=== PATIENT | female | born 1975 | race Caucasian/White ===

== ENCOUNTER 2017-08-11 12:39 | Day surgery (SDC) | payer OTHER ==
[2017-08-11] MEDS ORDERED: LIDOCAINE 2% (SDV) 5 ML INJ (13:18)
[2017-08-11] MEDS ORDERED: PROPOFOL 40 ML (13:18)
[2017-08-11] MEDS ORDERED: MIDAZOLAM 1 MG/ML 2 ML INJ (13:19)
[2017-08-11] MEDS ORDERED: PROPOFOL 20 ML ×4 (13:56)
== END 2017-08-11 15:15 | disposition home or self-care (01) ==
LOC: GIL 12:39
DX: K92.1 Melena (principal)
CPT/HCPCS: 45378; 82962; 84703

== ENCOUNTER 2018-06-29 11:20 | Day surgery (SDC) | payer OTHER ==
[2018-06-29] MEDS ORDERED: FENTAnyl 50 MCG/ML VIAL (13:00)
[2018-06-29] MEDS ORDERED: PROPOFOL 20 ML (13:00)
== END 2018-06-29 15:18 | disposition home or self-care (01) ==
LOC: GIL 11:20
DX: K44.9 Diaphragmatic hernia without obstruction or gangrene (principal); K21.9 Gastro-esophageal reflux disease without esophagitis; I10 Essential (primary) hypertension; E11.9 Type 2 diabetes mellitus without complications; J45.909 Unspecified asthma, uncomplicated
CPT/HCPCS: 43239; 82962; 84703; 88305

== ENCOUNTER 2018-12-27 08:54 | Inpatient (IN) | payer OTHER ==
[~2018-12-27 08:54] MED LIST: CEFAZOLIN 2 GM/50 ML (PMX) 50 ML IVPB
[2018-12-27] MEDS ORDERED: GLYCOPYRROLATE 0.4 MG INJ (10:50)
[2018-12-27] MEDS ORDERED: ROCURONIUM 50 MG INJ (10:50)
[2018-12-27] MEDS ORDERED: PROPOFOL 20 ML (10:51)
[2018-12-27] MEDS ORDERED: FENTAnyl 50 MCG/ML VIAL ×3 (10:51→16:02)
[2018-12-27] MEDS ORDERED: DEXAMETHASONE 4 MG/ML 5 ML INJ (10:51)
[2018-12-27] MEDS ORDERED: NEOSTIGMINE 3 MG/3 ML SYRINGE (10:51)
[2018-12-27] MEDS ORDERED: CEFAZOLIN 1 GM INJ (10:51)
[2018-12-27] MEDS ORDERED: ONDANSETRON 4 MG INJ (10:51)
[2018-12-27] MEDS ORDERED: MIDAZOLAM 1 MG/ML 2 ML INJ ×2 (10:51→16:26)
[2018-12-27] MEDS ORDERED: SOD CHLORIDE 0.9% 1,000 ML IV (11:00)
[2018-12-27] MEDS ORDERED: FENTAnyl 50 MCG/ML VIAL IV ×2 (11:30)
[2018-12-27] MEDS ORDERED: TRIMETHOBENZAMIDE 100 MG/ML VIAL IM (11:30)
[2018-12-27] MEDS ORDERED: HYDROmorphONE 1 MG/5 ML IV SYRINGE IV ×3 (11:30→16:25)
[2018-12-27] MEDS ORDERED: hydrALAzine 20 MG INJ IV (11:30)
[2018-12-27] MEDS ORDERED: IPRATROPIUM (NEB) 0.5 MG/2.5 ML AMP HHN (11:30)
[2018-12-27] MEDS ORDERED: ALBUTEROL 0.083% (NEB) 2.5 MG/3 ML AMP HHN (11:30)
[2018-12-27] MEDS ORDERED: OXYCODONE/ACETAMINOPHEN (5/325) TAB PO ×2 (11:30)
[2018-12-27] MEDS ORDERED: LABETALOL HCL 20MG INJ IV (11:30)
[2018-12-27] MEDS ORDERED: EPHEDrine 25 MG/5 ML SYG IV (11:30)
[2018-12-27] MEDS ORDERED: ONDANSETRON 4 MG INJ IV (11:30)
[2018-12-27] MEDS ORDERED: POLYMYXIN/BACITRACIN 1L IRRIG (11:39)
[2018-12-27] MEDS ORDERED: BUPIVACAINE 0.5% (SDV) 30 ML INJ (11:40)
[2018-12-27] MEDS ORDERED: SURGIFOAM POWDER 1 GM KIT (11:40)
[2018-12-27] MEDS ORDERED: BUPIVACAINE 0.25%/EPI (SDV) 30 ML INJ (11:40)
[2018-12-27] MEDS ORDERED: CA CHLORIDE 10% 10 ML SYRINGE ×2 (11:41→14:51)
[2018-12-27] MEDS ORDERED: BUPIVACAINE 0.25% (MPF) 30 ML INJ (11:44)
[2018-12-27] MEDS: morphine 2 MG INJ IV ×3 (12:15→21:37)
[2018-12-27] MEDS ORDERED: HYDROCODONE/APAP (5/325) TAB PO (13:00)
[2018-12-27] MEDS ORDERED: PROCHLORPERAZINE 10 MG TAB PO (13:00)
[2018-12-27] MEDS ORDERED: CEPASTAT LOZENGE MT (13:00)
[2018-12-27] MEDS ORDERED: NALOXONE (0.4 MG/ML) INJ IV (13:00)
[2018-12-27] MEDS ORDERED: DIPHENHYDRAMINE 50 MG INJ IV (13:00)
[2018-12-27] MEDS: BUPIVACAINE 0.25%/EPI (SDV) 30 ML INJ INJ (13:56)
[2018-12-27] MEDS: HYDROmorphONE 1 MG/5 ML IV SYRINGE IV (15:44)
[2018-12-27] MEDS: DIPHENHYDRAMINE 50 MG INJ IV (15:45)
[2018-12-27] MEDS: FENTAnyl 50 MCG/ML VIAL IV ×2 (15:45→16:47)
[2018-12-27] MEDS: MEPERIDINE 25 MG INJ IV (15:45)
[2018-12-27] MEDS: MIDAZOLAM 1 MG/ML 2 ML INJ IV (16:38)
[2018-12-27] MEDS ORDERED: HYDROmorphONE 1 MG/ML SYG (17:02)
[2018-12-27] MEDS: HYDROmorphONE 1 MG/ML SYG IV (17:09)
[2018-12-27] MEDS: HYDROmorphONE 0.2 MG/ML PCA IV ×2 (17:44→21:57)
[2018-12-27] MEDS: CEFAZOLIN 1 GM/50 ML (PMX) 50 ML IVPB (18:26)
[2018-12-27] MEDS: CYCLOBENZAPRINE 10 MG TAB PO (18:33)
[2018-12-27] MEDS: DOCUSATE SODIUM 100 MG CAP PO (21:36)
[2018-12-28] MEDS: CEFAZOLIN 1 GM/50 ML (PMX) 50 ML IVPB ×2 (02:29→10:24)
[2018-12-28 05:09] LABS: ADD MAN DIFF? NO; BASOPHILS % 0.1 % (0.0-2.0); HEMATOCRIT 38.3 % (37.0-47.0); HEMOGLOBIN 12.9 g/dl (12.0-16.0); LYMPHOCYTES # 1.2 10^3/ul (0.8-2.9); LYMPHOCYTES % 7.9 % (15.0-51.0); MEAN CORPUSCULAR HEMOGLOBIN 30.3 pg (29.0-33.0); MEAN CORPUSCULAR HGB CONC 33.7 g/dl (32.0-37.0); MEAN CORPUSCULAR VOLUME 89.9 fl (82.0-101.0); MEAN PLATELET VOLUME 10.3 fl (7.4-10.4); MONOCYTE # 1.1 10^3/ul (0.3-0.9); MONOCYTES % 7.8 % (0.0-11.0); NEUTROPHIL # 12.1 10^3/ul (1.6-7.5); NEUTROPHILS % 83.6 % (39.0-77.0); PLATELET COUNT 353 10^3/UL (140-415); RED BLOOD COUNT 4.26 10^6/ul (4.20-5.40); RED CELL DISTRIBUTION WIDTH 12.4 % (11.5-14.5)
[2018-12-28 05:09] LABS: WHITE BLOOD COUNT 14.5 10^3/ul (4.8-10.8)
[2018-12-28 05:38] LABS: ANION GAP 9 (5-13); BLOOD UREA NITROGEN 9 mg/dl (7-20); CALCIUM 9.3 mg/dl (8.4-10.2); CARBON DIOXIDE 26 mmol/L (21-31); CHLORIDE 104 mmol/L (97-110); CREATININE 0.58 mg/dl (0.44-1.00); Estimated GFR > 60 mL/min (>60); GLUCOSE 146 mg/dl (70-220); MAGNESIUM 1.7 mg/dl (1.7-2.5); POTASSIUM 4.1 mmol/L (3.5-5.1); SODIUM 139 mmol/L (135-144)
[2018-12-28] MEDS: PANTOPRAZOLE (EC) 40 MG TAB PO (05:39)
[2018-12-28 05:43] LABS: HEMOGLOBIN A1C 5.9 % (0-5.9)
[2018-12-28] MEDS: HYDROmorphONE 0.2 MG/ML PCA IV ×3 (05:48→17:36)
[2018-12-28] MEDS: GEMFIBROZIL 600 MG TAB PO (08:40)
[2018-12-28] MEDS: DOCUSATE SODIUM 100 MG CAP PO ×2 (08:40→20:25)
[2018-12-28] MEDS: metFORMIN 500 MG TAB PO (08:40)
[2018-12-28] MEDS: LISINOPRIL 10 MG TAB PO (08:41)
[2018-12-28] MEDS: ONDANSETRON 4 MG INJ IV (10:24)
[2018-12-28] MEDS ORDERED: GLUCAGON 1 MG INJ IM (13:00)
[2018-12-28] MEDS ORDERED: GLUCOSE GEL 15 GRAM TUBE BUCCAL (13:00)
[2018-12-28] MEDS ORDERED: DEXTROSE 50% 50 ML SYRINGE IV ×2 (13:00)
[2018-12-28] MEDS ORDERED: GLUCOSE GEL 15 GRAM TUBE PO ×2 (13:00)
[2018-12-28] MEDS: INSULIN ASPART [NOVOLOG] 3 ML PEN SC ×2 (17:39→20:28)
[2018-12-28] MEDS ORDERED: HYDROCODONE/APAP (5/325) TAB PO (19:00)
[2018-12-28] MEDS: HYDROCODONE/APAP (5/325) TAB PO (19:31)
[2018-12-28] MEDS: HYDROmorphONE 1 MG/ML SYG IV (20:26)
[2018-12-28] MEDS: DIPHENHYDRAMINE 25 MG CAP PO (21:32)
[2018-12-29] MEDS: ACETAMINOPHEN 325 MG TAB PO (00:40)
[2018-12-29] MEDS: HYDROmorphONE 0.2 MG/ML PCA IV (01:36)
[2018-12-29] MEDS: PANTOPRAZOLE (EC) 40 MG TAB PO (05:52)
[2018-12-29] MEDS: ONDANSETRON 4 MG INJ IV ×2 (06:19→12:46)
[2018-12-29] MEDS ORDERED: OXYCODONE/ACETAMINOPHEN (5/325) TAB PO (07:00)
[2018-12-29] MEDS: OXYCODONE/ACETAMINOPHEN (5/325) TAB PO ×2 (07:33→10:28)
[2018-12-29] MEDS: DOCUSATE SODIUM 100 MG CAP PO ×2 (08:37→20:39)
[2018-12-29] MEDS: GEMFIBROZIL 600 MG TAB PO (08:37)
[2018-12-29] MEDS: LISINOPRIL 10 MG TAB PO (08:38)
[2018-12-29] MEDS: metFORMIN 500 MG TAB PO (08:38)
[2018-12-29] MEDS: INSULIN ASPART [NOVOLOG] 3 ML PEN SC ×4 (09:06→20:42)
[2018-12-29] MEDS: CYCLOBENZAPRINE 10 MG TAB PO ×3 (09:12→21:48)
[2018-12-29] MEDS: HYDROmorphONE 0.5 MG/0.5 ML SYG IV ×5 (09:13→23:31)
[2018-12-29] MEDS ORDERED: OXYCODONE/ACETAMINOPHEN (10/325) TAB PO (12:30)
[2018-12-29] MEDS: OXYCODONE/ACETAMINOPHEN (10/325) TAB PO ×3 (14:43→22:25)
[2018-12-30] MEDS: OXYCODONE/ACETAMINOPHEN (10/325) TAB PO ×3 (02:33→10:45)
[2018-12-30] MEDS: HYDROmorphONE 0.5 MG/0.5 ML SYG IV ×2 (04:13→13:16)
[2018-12-30] MEDS: PANTOPRAZOLE (EC) 40 MG TAB PO (06:31)
[2018-12-30] MEDS: INSULIN ASPART [NOVOLOG] 3 ML PEN SC ×2 (07:50→12:36)
[2018-12-30] MEDS: DOCUSATE SODIUM 100 MG CAP PO (08:27)
[2018-12-30] MEDS: LISINOPRIL 10 MG TAB PO (08:28)
[2018-12-30] MEDS: GEMFIBROZIL 600 MG TAB PO (08:28)
[2018-12-30] MEDS: metFORMIN 500 MG TAB PO (08:28)
[2018-12-30] MEDS: CYCLOBENZAPRINE 10 MG TAB PO (08:28)
[2018-12-30] MEDS: ONDANSETRON 4 MG INJ IV (09:25)
== END 2018-12-30 15:15 | disposition home or self-care (01) | DRG 455 ==
LOC: REC 08:54 → MS1 18:09
PROVIDERS: Orthopaedic Surgery Orthopaedic Surgery of the Spine
PROC: 0SG30AJ Fusion of Lumbosacral Joint with Interbody Fusion Device, Posterior Approach, Anterior Column, Open Approach (ICD-10-PCS; principal; 2018-12-27 11:00)
PROC: 0SG30K1 Fusion of Lumbosacral Joint with Nonautologous Tissue Substitute, Posterior Approach, Posterior Column, Open Approach (ICD-10-PCS; 2018-12-27 11:00)
PROC: 00NY0ZZ Release Lumbar Spinal Cord, Open Approach (ICD-10-PCS; 2018-12-27 11:00)
PROC: 4A11X4G Monitoring of Peripheral Nervous Electrical Activity, Intraoperative, External Approach (ICD-10-PCS; 2018-12-27 11:00)
DX: M51.36 Other intervertebral disc degeneration, lumbar region (principal); M48.061 Spinal stenosis, lumbar region without neurogenic claudication; I10 Essential (primary) hypertension; E11.9 Type 2 diabetes mellitus without complications; E78.5 Hyperlipidemia, unspecified; E66.01 Morbid (severe) obesity due to excess calories; Z68.39 Body mass index [BMI] 39.0-39.9, adult
CPT/HCPCS: 72020; 72100; 80048; 82962; 83036; 83735; 84703; 85025; 86850; 86900; 86901; 86920; 86999; 87086; 97110; 97116; 97162; 97167; 97530